=== PATIENT | male | born 1960 | race Caucasian/White ===

== ENCOUNTER → 2019-09-15 | Day surgery (SDC) | payer BC ==
[2019-09-12 15:21] VITALS: BMI 27.2
[~2019-09-15] MED LIST: ENALAPRILAT 1.25 MG/ML 1 ML VIAL IVP ONE; ENALAPRILAT 1.25 MG/ML 1 ML VIAL ONE; LACTATED RINGERS 1,000 ML IV SCH; LIDOCAINE 1% (10MG/ML) FOR IV START INTRADERMA PRN; MIDAZOLAM 2 MG/2 ML VIAL ONE; PROPOFOL 10 MG/ML 20 ML VIAL IV ONE; fentaNYL (PF) 50 MCG/ML 2 ML AMP ONE
[2019-09-15 08:09] VITALS: TEMP 96.7
--- NOTE | 2019-09-15 09:18 | P.GSHP ---
History of Present Illness H&P Date: 09/15/19 Chief Complaint: Screening colonoscopy This a 59-year-old male presents today for screening colonoscopy. Patient denies a significant GI complaints. Past Medical History Past Medical History: No Reported History Additional Past Medical History / Comment(s): past hx migraines, History of Any Multi-Drug Resistant Organisms: None Reported Additional Past Surgical History / Comment(s): colonoscopy Past Anesthesia/Blood Transfusion Reactions: No Reported Reaction Smoking Status: Current every day smoker - Past Family History Mother Family Medical History: No Reported History Medications and Allergies Home Medications Medication Instructions Recorded Confirmed Type Aspirin [Adult Low Dose Aspirin EC] 81 mg PO DAILY 04/25/19 09/15/19 History Ascorbic Acid [Vitamin C] 250 mg PO DAILY 09/12/19 09/15/19 History Allergies Allergy/AdvReac Type Severity Reaction Status Date / Time No Known Allergies Allergy Verified 09/15/19 08:06 Surgical - Exam Vital Signs Temp Pulse Resp BP Pulse Ox 96.7 F L 89 17 170/101 98 09/15/19 08:07 09/15/19 08:07 09/15/19 08:07 09/15/19 08:07 09/15/19 08:07 - General well developed, well nourished - Eyes PERRL - ENT normal pinna - Neck no masses - Respiratory normal expansion - Cardiovascular Rhythm: regular - Abdomen Abdomen: soft, non tender Assessment and Plan Assessment: We'll perform screening colonoscopy.
--- NOTE | 2019-09-15 09:29 | P.OP ---
Date of Procedure: 09/15/19 Preoperative Diagnosis: Screening colonoscopy Postoperative Diagnosis: Normal colonoscopy Procedure(s) Performed: Screening colonoscopy Anesthesia: MAC Surgeon: Itz Bustamante Pathology: none sent Condition: stable Disposition: PACU Description of Procedure: PROCEDURE: The patient was placed on the endoscopy table in the lateral position. Digital rectal examination was performed which revealed no abnormalities. The prostate was symmetrical without nodules. Flexible colonoscope was then placed in the patient's anus and passed throughout the entire colon. The ileocecal valve was visualized. The cecum, ascending, transverse, descending and sigmoid colon were normal. The rectum was normal as well. There were no masses, polyps or diverticula noted in the entire colon. SUMMARY OF FINDINGS: Normal colonoscopy.
[2019-09-15 09:52] VITALS: RESP 18
[2019-09-15 10:29] VITALS: BP 141/86; PULSE 72
== END | disposition home or self-care (01) ==
LOC: ORWHC2ENDO 07:36
PROVIDERS: ATTEND Surgery
DX: Z12.11 Encounter for screening for malignant neoplasm of colon (principal); Z86.69 Personal history of other diseases of the nervous system and sense organs; F17.200 Nicotine dependence, unspecified, uncomplicated; Z79.82 Long term (current) use of aspirin; Z79.899 Other long term (current) drug therapy
CPT/HCPCS: G0121; J2250; J3010; J2704; 45378

== ENCOUNTER 2022-06-22 06:51 | Day surgery (SDC) | payer BC ==
[~2022-06-22 06:51] MED LIST changes: +ALPRAZolam 0.25 MG TAB PO PRN; +ASPIRIN 325 MG TAB PO PRN; -ENALAPRILAT 1.25 MG/ML 1 ML VIAL IVP ONE; -ENALAPRILAT 1.25 MG/ML 1 ML VIAL ONE; -LACTATED RINGERS 1,000 ML IV SCH; -LIDOCAINE 1% (10MG/ML) FOR IV START INTRADERMA PRN; -MIDAZOLAM 2 MG/2 ML VIAL ONE; -PROPOFOL 10 MG/ML 20 ML VIAL IV ONE; +SODIUM CHLORIDE 0.9% 1,000 ML in EMPTY BAG 1 BAG IV ONE; -fentaNYL (PF) 50 MCG/ML 2 ML AMP ONE
[2022-06-22] MEDS ORDERED: SODIUM CHLORIDE 0.9% 1,000 ML IV ONE (07:06)
[2022-06-22 07:19] VITALS: RESP 16; TEMP 98.8
[2022-06-22 07:38] LABS: Basophils % (A) 1 %; Eosinophils # (A) 0.2 k/uL (0-0.7); Eosinophils % (A) 3 %; HCT 48.5 % (39.0-53.0); HGB 15.8 gm/dL (13.0-17.5); Lymphocytes # (A) 1.3 k/uL (1.0-4.8); Lymphocytes % (A) 21 %; MCH 31.4 pg (25.0-35.0); MCHC 32.6 g/dL (31.0-37.0); MCV 96.2 fL (80.0-100.0); Mean Platelet Volume 10.2; Monocytes # (A) 0.4 k/uL (0-1.0); Monocytes % (A) 6 %; Neutrophils # (A) 4.2 k/uL (1.3-7.7); Neutrophils % (A) 66 %; Platelet Count 168 k/uL (150-450); RBC 5.04 m/uL (4.30-5.90); WBC 6.3 k/uL (3.8-10.6)
[2022-06-22 07:55] LABS: African American GFR (CKD) >90 (>60 ml/min/1.73 sqM); Anion Gap 7 mmol/L; Blood Urea Nitrogen 14 mg/dL (9-20); Calcium 8.9 mg/dL (8.4-10.2); Carbon Dioxide 22 mmol/L (22-30); Chloride 109 mmol/L (98-107); Glucose 102 mg/dL (74-99); Non-African American GFR(CKD) >90 (>60 ml/min/1.73 sqM); Potassium 5.7 mmol/L (3.5-5.1); Sodium 138 mmol/L (137-145)
[2022-06-22] MEDS ORDERED: LIDOCAINE 1% INJ 10MG/ML (20 ML MDV) ONE (08:33)
[2022-06-22] MEDS ORDERED: fentaNYL (PF) 50 MCG/ML 2 ML AMP ONE (08:35)
[2022-06-22] MEDS ORDERED: MIDAZOLAM 2 MG/2 ML VIAL IV ONE (08:39)
[2022-06-22] MEDS ORDERED: LIDOCAINE 1% INJ 10MG/ML (30 ML VIAL-PF) SQ ONE (08:40)
[2022-06-22] MEDS ORDERED: HEPARIN SODIUM 1,000 UN/ML (10ML VL) IV ONE (08:45)
[2022-06-22] MEDS ORDERED: fentaNYL (PF) 50 MCG/1 ML VIAL IV ONE (08:51)
[2022-06-22] MEDS ORDERED: IOPAMIDOL-250 100ML BTL INTRAARTER ONE ×2 (09:29→10:08)
[2022-06-22] MEDS ORDERED: ALTEPLASE 2 MG VIAL (CATHFLO) IV STA ×2 (09:56→09:57)
[2022-06-22] MEDS: NITROGLYCERIN 1000MCG/10ML SYRINGE INTRAARTER ONE ×2 (10:05→10:08)
[2022-06-22] MEDS ORDERED: ALTEPLASE 2 MG VIAL (CATHFLO) IA ONE (10:06)
[2022-06-22] MEDS ORDERED: NITROGLYCERIN OINT 1 INCH/GM PACKET TOPICAL ONE ×2 (10:09→10:29)
--- NOTE | 2022-06-22 10:41 | P.OP ---
Date of Procedure: 06/22/22 Description of Procedure: Pre-Op Dx: Right lower extremity claudication Island classification 3, SFA occlusion Post-Op Dx: Right lower family claudication [place] classification 3, SFA occlusion, small vessel disease at the foot Procedure: 1. Ultrasound guided left common femoral artery femoral artery access 2. Right lower extremity selective angiogram 3. Percutaneous directional atherectomy of right superficial femoral artery with Hawk One device 4. Percutaenous balloon angioplasty with 6 x 250 mm and 6 x 150 mm impact balloon 5. Percutaneous closure of left femoral artery with Vascade device Surgeon: Abdoul Almanza DO Anesthesia: conscious sedation with local x 94 minutes EBL: 20 mL Complications: none Condition: Stable Findings: Right SFA chronic total occlusion with reconstitution at the popliteal artery just above the knee. Three-vessel takeoff with slow flow to the ankle prior to intervention. After intervention brisk flow to the TPT trunk with three-vessel runoff to the ankle which is slow once again it's to the foot. Indication for procedure: 61-year-old gentleman with history of right lower extremity superficial femoral artery occlusion presenting to the hospital for intervention and possible atherectomy and stenting of the right lower extremity. His ABIs in the office demonstrated less than 0.65 on the right. He was having pain with ambulation as well as coolness of the foot which she described as ice prior to intervention. Operative narrative: After written and informed consent was obtained the patient all risks, benefits and complications were described patient is brought to the Employment Appeals Examiner and laid supine position. The area of the left groin was prepped and draped in usual sterile fashion. Timeout was performed in normal fashion. Utilizing ultrasound the left femoral artery was accessed and a 6 F sheath was placed. 035 Glidewire was then placed into the aorta followed by an RBI catheter and the right iliac was accessed in an up and over fashion. Selective angiogram was then obtained of the right lower extremity demonstrating chronic total occlusion of the SFA with reconstitution of the popliteal just above the knee. Patient was given heparin and followed with ACTs. An 035 Glidewire advantage was then placed in an up and over fashion and the 6 F short sheath was removed and replaced with an up and over 7 F sheath. Selective angiogram was again obtained demonstrating occlusion of the SFA. Utilizing 035 Glidewire and quick cross catheter the lesion was crossed and selective angiogram distally was obtained demonstrating good intraluminal access. Once across a 6-Portuguese spider filter was placed and utilizing a 7F Hawk one atherectomy device directional atherectomy was performed with multiple passes. Once completed angiogram was obtained demonstrating improvement of the stenotic area. Balloon angioplasty was then performed with a impact drug-eluting balloon 2. Final angiogram demonstrated complete resolution of the occlusion of the SFA with brisk blood flow to the TPT trunk. There was slow flow to the ankle and foot. Patient was administered nitro as well as TPA for any possible small thrombus and recheck angiogram demonstrated improved flow to the ankle and foot. All guidewires and catheters were then removed the sheath was removed and replaced with a short 7 F sheath and utilizing a Vascade closure device the access was closed. Pressure was placed for hemostasis. The patient tolerated the procedure well and had multiphasic signal at the DP at the ankle. He was sent to recovery. Plan - Discharge Summary Discharge Rx Participant: No New Discharge Prescriptions: No Action Aspirin [Adult Low Dose Aspirin EC] 81 mg PO DAILY Ascorbic Acid [Vitamin C] 250 mg PO DAILY Vit D(Unknown) 1 tab PO DAILY Atorvastatin Calcium 20 mg PO HS Discharge Medication List Aspirin [Adult Low Dose Aspirin EC] 81 mg PO DAILY 04/25/19 [History] Ascorbic Acid [Vitamin C] 250 mg PO DAILY 09/12/19 [History] Atorvastatin Calcium 20 mg PO HS 06/18/22 [History] Vit D(Unknown) 1 tab PO DAILY 06/18/22 [History] Follow up Appointment(s)/Referral(s): Abdoul Almanza DO [STAFF PHYSICIAN] - 1 Week (APPOINTMENT MADE ON June @ 3:45PM ) Patient Instructions/Handouts: Atherectomy (DC), Moderate Sedation (DC), Peripheral Vascular Angioplasty (DC), Peripheral Vascular Stent Placement (DC) Activity/Diet/Wound Care/Special Instructions: NO DRIVING FOR THREE DAYS. OK TO SHOWER TOMORROW BUT NO SOAKING, SWIMMING FOR THREE DAYS TO AVOID RISK OF INFECTION AVOID LIFTING GREATER THAN 10LBS, PUSHING PULLING STRAINING FOR THREE DAYS. IF SITE BLEEDS, HOLD FIRM PRESSURE AND GO TO ER. CALL [address] SELF. SIGNS OF INFECTION IE: FEVER, RASH, SWELLING AROUND/ON SITE, OR ANY UNUSUAL DRAINAGE GO TO ER TO BE EVALUATED MEDICATION DIRECTED BY ACETAMINOPHEN FOR PAIN AD DIRECTED.
--- NOTE | 2022-06-22 10:50 | IR ---
EXAMINATION TYPE: IR captain room service femoral popliteal DATE OF EXAM: 06/22/2022 COMPARISON: NONE HISTORY: Fluoroscopy time. Fluoroscopy was provided to the referring clinician.
[2022-06-22] MEDS ORDERED: CLOPIDOGREL 75 MG TAB PO STA (12:22)
[2022-06-22 20:48] VITALS: BP 133/76; PULSE 75
== END 2022-06-22 14:40 | disposition home or self-care (01) ==
LOC: CATHCVL 06:51
PROVIDERS: ATTEND Surgery
DX: I70.211 Atherosclerosis of native arteries of extremities with intermittent claudication, right leg (principal)
CPT/HCPCS: 37225; 80048; 85025; C1894 ×4; C1769 ×4; C1887; C1714; C1884; C2623 ×2; C1760; J2250; J2001; J1644; J2997; Q9966; J3010

== ENCOUNTER → 2022-06-29 | Outpatient (CLI) | payer BC ==
--- NOTE | 2022-06-30 00:18 | CT ---
EXAMINATION TYPE: CT urogram wo/w con DATE OF EXAM: 06/29/2022 COMPARISON: None HISTORY: Hematuria 3wks ago[address] CT DLP: 2026.6 mGycm Automated exposure control for dose reduction was used. Contrast: None Technique: Axial images 3 mm thick sections. Reconstructed images in the coronal plane. Pre and postc ontrast imaging is performed. 3-D constructed images performed by the technologist are reviewed on e computer. FINDINGS: Limited CT sections were obtained through the lung bases which are clear. CT ABDOMEN: There is a 1.6 cm cyst in the posterior right lobe liver. Spleen appears unremarkable. Pa ncreas is unremarkable. Gallbladder is normal. Vascular calcifications within the aorta. Inferior aníbal a cava is unremarkable. There is a tiny cyst with rim calcification at the superior pole right kidney measuring 1.1 cm. There is a 1.2 cm cyst on the anterior mid to lower pole right kidney. No masses or hydronephrosis are etienne dent. No renal stones are identified. Loops of bowel within the abdomen and pelvis as visualized appear unremarkable. There are fluid-fille d small bowel loops within the midabdomen. A couple of diverticuli within the sigmoid colon CT PELVIS: Urinary bladder is visualized is unremarkable. Pre and postcontrast images performed throu gh the kidneys. Delayed images were obtained through the renal collecting system. Prostate is promine nt. Urogram: Renal calyces due to underlying renal pelvis appear unremarkable. Ureters follow a normal ca liber course and contour to the urinary bladder. Bilateral ureteral jets are identified. The urinary bladder is visualized appears unremarkable. IMPRESSION: 1. NO SUSPICIOUS ABNORMALITY TO ACCOUNT FOR HEMATURIA WITHIN THE RENAL COLLECTING SYSTEM URETERS OR U RINARY BLADDER. 2. CALCIFIED CYST SUPERIOR POLE RIGHT KIDNEY. ADDITIONAL CORTICAL RENAL CYSTS WITH THE INFERIOR POLE RIGHT KIDNEY. 3. MARKED PROMINENCE OF THE PROSTATE.
== END | disposition home or self-care (01) ==
LOC: RADCTMAIN 15:02
PROVIDERS: ATTEND Family Medicine
DX: N28.1 Cyst of kidney, acquired (principal)
CPT/HCPCS: 74178; 74400; Q9967

== ENCOUNTER → 2023-06-11 | Outpatient (CLI) | payer MEDICARE, BC ==
--- NOTE | 2023-06-11 11:31 | CTL ---
EXAMINATION TYPE: CT Low Dose Lung DATE OF EXAM ORDERED: 06/11/2023 History: Lung cancer screening CT DLP: 134.[address] CTDI: 3.3 mGy Automated exposure control for dose reduction was used. COMPARISON: None TECHNIQUE: Low dose computed tomography scan was performed through the chest at 1 mm thick sections a nd reconstructed images in multiple planes at 1 mm and [address] DIAGNOSTIC QUALITY: Satisfactory FINDINGS: There are no suspicious lung masses or nodules. There is no abnormal airspace last consolidated density or abnormal interstitial density. There is no pleural effusion, pleural thickening or pneumothorax. The great vessels the chest are normal there's no mediastinal, hilar or axillary adenopathy. Limited scanning through the upper abdomen reveals a stable mass with rim calcification of the right kidney. This is seen on the prior CT urogram dated 06/29/2022 and is unchanged. There is a stable 1.8 cm hypodensity/cyst in the posterior segment of the right lobe of the liver. No focal osseous lesions are seen. IMPRESSION: 1. Lung rads category 1 negative. Continue routine screening at yearly intervals. 2. No acute cardiopulmonary disease.
== END | disposition home or self-care (01) ==
LOC: RADCTMAIN 06:05
PROVIDERS: ATTEND Family Medicine
DX: Z12.2 Encounter for screening for malignant neoplasm of respiratory organs (principal); Z87.891 Personal history of nicotine dependence
CPT/HCPCS: 71271

== ENCOUNTER → 2024-08-15 | Outpatient (CLI) | payer MEDICARE, BC ==
--- NOTE | 2024-08-15 07:43 | CTL ---
EXAMINATION TYPE: CT Low Dose Lung DATE OF EXAM ORDERED: 08/15/2024 COMPARISON: CT Low Dose Lung 06/11/2023, CT urogram 06/29/2022 CLINICAL INDICATION: Male, 64 years old with history of Z12.2 SCREENING LUNG CA Z87.891 [employer] ; [facility], Screening for lung cancer, Former smoker, Lung cancer screening, History of Smoking/tobacco us e. TECHNIQUE: Low dose computed tomography scan was performed through the chest at 1 mm thick sections a nd reconstructed images in multiple planes at 1 mm and [address] DLP: 105.[address] CTDI: 2.80 mGy Automated exposure control for dose reduction was used. CT DIAGNOSTIC QUALITY: Satisfactory FINDINGS: Nodules: No clinically significant pulmonary nodule. LUNGS: COPD: Severity: Mild Fibrosis: Severity: None Lymph nodes: None Other findings: Minimal linear scarring or atelectasis within the lingula. RIGHT PLEURAL SPACE: Effusion: None Calcification: None Thickening: None Pneumothorax: None LEFT PLEURAL SPACE: Effusion: None Calcification: None Thickening: None Pneumothorax: None HEART: Heart Size: Normal Coronary Calcification: None Pericardial Effusion: None OTHER FINDINGS: Upper abdomen: Few scattered stable hepatic cysts. Stable lesion with rim calcification of the right kidney superior pole measuring 1 cm. Consider benign due to stability. Bony thorax: Healed bilateral posterior eighth and ninth rib fractures. Mild multilevel degenerative disc disease of the mid to lower thoracic spine. Schmorl's node involving the superior endplate of th e T12 vertebral body. 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 IMPRESSION: 1. No clinically significant pulmonary nodule. 2. Mild emphysematous change. 3. Minimal aneurysmal dilatation of the aortic root measuring 4.2 cm and of the ascending thoracic a vilma measuring 4.[address] LUNG RAD AND CT CHEST RECOMMENDATION: Lung-Rad 1 Negative: Continue annual screening with LDCT in 12 months. S Modifier (other clinically significant findings): None [facility], , 08/15/2024 7:40 AM
== END | disposition home or self-care (01) ==
LOC: RADCTMAIN 06:15
PROVIDERS: ATTEND Family Medicine
DX: Z12.2 Encounter for screening for malignant neoplasm of respiratory organs (principal); J43.9 Emphysema, unspecified; I71.21 Aneurysm of the ascending aorta, without rupture; Z87.891 Personal history of nicotine dependence
CPT/HCPCS: 71271